=== PATIENT | female | born 2000 | race Caucasian/White ===

== ENCOUNTER 2023-06-16 20:54 | Emergency (ER) | payer BC ==
[~2023-06-16] VITALS: Ht 160 cm; Wt 50.9 kg
[2023-06-17 02:29] VITALS: BP 120/76; PULSE 78; TEMP 98.5
== END 2023-06-17 02:29 | disposition home or self-care (01) ==
LOC: COL.ER 20:54
DX: S62.304A Unspecified fracture of fourth metacarpal bone, right hand, initial encounter for closed fracture (principal); W21.06XA Struck by volleyball, initial encounter; Y93.68 Activity, volleyball (beach) (court)